=== PATIENT | female | born 1985 ===

== ENCOUNTER 2018-01-08 13:24 | Emergency (ER) | payer OTHER ==
[2018-01-08 13:46] VITALS: BP 114/66; PULSE 82; TEMP 98.6; O2SAT 96
--- NOTE | 2018-01-08 14:43 | ED PDOC ---
HPI: General Adult Time Seen by Provider: 01/08/18 13:59 Chief Complaint (Nursing): Chemical Exposure Chief Complaint (Provider): Chest Tightness History Per: Patient History/Exam Limitations: no limitations Onset/Duration Of Symptoms: Hrs Current Symptoms Are (Timing): Still Present Additional Complaint(s): 32 year old female presents to the ED complaining of chest tightness. Patient was at work at school and abnormal fumes were being investigated which were found to be carbon monoxide. At the seen, rapid CO was done and indicated she had high CO levels of 9.2. She is asymptomatic except for tightness around the lower ribs. Patient denies SOB, CP, dizziness, JIMENEZ, nausea, and cough. She is 20 weeks and is G3PO with 2 miscarriages. GRAIN RECEIVER: Hakeem Willis Past Medical History Reviewed: Historical Data, Nursing Documentation, Vital Signs Vital Signs: Last Vital Signs Temp 98.6 F 01/08/18 13:43 Pulse 82 01/08/18 13:43 Resp 18 01/08/18 13:43 BP 114/66 01/08/18 13:43 Pulse Ox 96 01/08/18 14:50 - Medical History PMH: No Chronic Diseases - Surgical History Surgical History: No Surg Hx - Family History Family History: States: No Known Family Hx - Social History Current smoker - smoking cessation education provided: No - Allergies Allergies/Adverse Reactions: Allergies Allergy/AdvReac Type Severity Reaction Status Date / Time No Known Allergies Allergy Verified 01/08/18 13:42 Review of Systems ROS Statement: Except As Marked, All Systems Reviewed And Found Negative (as per HPI) Cardiovascular: Positive for: Other (chest tightness). Negative for: Chest Pain Respiratory: Negative for: Shortness of Breath Gastrointestinal: Negative for: Nausea Neurological: Negative for: Headache, Dizziness Physical Exam - Reviewed Nursing Documentation Reviewed: Yes Vital Signs Reviewed: Yes - Physical Exam Appears: Positive for: Well, Non-toxic, No Acute Distress Head Exam: Positive for: ATRAUMATIC, NORMOCEPHALIC Skin: Positive for: Warm, Dry Eye Exam: Positive for: EOMI, PERRL ENT: Negative for: Pharyngeal Erythema, Tonsillar Exudate Neck: Positive for: Painless ROM, Supple Cardiovascular/Chest: Positive for: Regular Rate, Rhythm, Chest Non Tender. Negative for: Murmur Respiratory: Positive for: Normal Breath Sounds. Negative for: Accessory Muscle Use, Rales, Wheezing, Respiratory Distress Gastrointestinal/Abdominal: Positive for: Soft. Negative for: Tenderness Back: Positive for: Normal Inspection. Negative for: Decreased ROM Extremity: Positive for: Normal ROM. Negative for: Deformity Lymphatic: Negative for: Adenopathy Neurologic/Psych: Positive for: Alert. Negative for: Motor/Sensory Deficits - ECG O2 Sat by Pulse Oximetry: 96 (RA) Pulse Ox Interpretation: Normal Medical Decision Making Medical Decision Making: Initial Impression: Possible CO exposure, possible toxicity. Initial Plan: --VBG Bedside US performed and positive movement and heartbeat observed. VBG with COhb 1.7 Scribe Attestation: Documented by Matthieu Fox acting as a scribe for Kinjal Gilman MD. Provider Scribe Attestation: All medical record entries made by the Scribe were at my direction and personally dictated by me. I have reviewed the chart and agree that the record accurately reflects my personal performance of the history, physical exam, medical decision making, and the department course for this patient. I have also personally directed, reviewed, and agree with the discharge instructions and disposition. Disposition - Clinical Impression Clinical Impression: Carbon monoxide exposure Counseled Patient/Family Regarding: Studies Performed, Diagnosis - Disposition Referrals: Hakeem Gaitan MD [Staff Provider] - (FOLLOW UP SCHEDULED) Disposition: Routine/Home Disposition Time: 14:50 Condition: GOOD Instructions: Carboxyhemoglobin Blood Test Forms: [employer] (Green[place]ic)
[2018-01-08 14:46] LABS: VENOUS BLOOD GAS BASE EXCESS 1.5 mmol/L (0.0-2.0); VENOUS BLOOD GAS PCO2 43 mmHg (40-60); VENOUS BLOOD GAS PO2 24 mm/Hg (30-55)
[2018-01-08 15:07] VITALS: RESP 17
== END 2018-01-08 15:08 | disposition home or self-care (01) ==
LOC: H.ER 13:24
DX: Z77.098 Contact with and (suspected) exposure to other hazardous, chiefly nonmedicinal, chemicals (principal); Z3A.20 20 weeks gestation of pregnancy